=== PATIENT | female | born 1995 | race Caucasian/White ===

== ENCOUNTER 2019-02-28 07:46 | Outpatient (CLI) | payer BC ==
--- NOTE | 2019-02-28 08:53 | MRI ---
BRAIN MRI NONCONTRAST: INDICATION: Frequency of headaches, paresthesia. FINDINGS: The ventricular system is normal in size. There is no mass effect or midline shift. No intraaxial h emorrhagic susceptibility. There are no significant signal abnormalities of the brain parenchyma. P aranasal sinuses are clear. Skull base flow voids are patent. IMPRESSION: No acute intracranial abnormalities are demonstrated by noncontrast brain MRI. POS: [facility]
== END 2019-02-28 07:47 | disposition home or self-care (01) ==
LOC: SCSMRI 07:46
PROVIDERS: ATTEND Family Medicine
DX: R51 Headache (principal); R42 Dizziness and giddiness; R47.89 Other speech disturbances; H53.9 Unspecified visual disturbance; R20.2 Paresthesia of skin
CPT/HCPCS: 70551